=== PATIENT | female | born 1970 | race Caucasian/White ===

== ENCOUNTER 2019-11-15 21:49 | Emergency (ER) | payer MEDICAID ==
[~2019-11-15] VITALS: Ht 160 cm; Wt 54.4 kg
[2019-11-15 22:01] VITALS: BP 128/98
--- NOTE | 2019-11-15 22:01 | NUR ---
PT WAITING FOR ER BED
--- NOTE | 2019-11-16 01:05 | NUR ---
CALLED FOR BED, NO ANSWER.
--- NOTE | 2019-11-16 01:10 | NUR ---
CALLED FOR BED, NO ANSWER.
--- NOTE | 2019-11-16 01:15 | NUR ---
CALLED FOR BED, NO ANSWER.
--- NOTE | 2019-11-16 01:15 | NUR ---
PATIENT LEFT WITHOUT BEING SEEN BY DR. CALDERON. NO FURTHER CARE PROVIDED FOR PATIENT.
== END 2019-11-16 01:05 | disposition left against medical advice (07) ==
LOC: MED 21:49
DX: F41.9 Anxiety disorder, unspecified (principal); Z53.21 Procedure and treatment not carried out due to patient leaving prior to being seen by health care provider